=== PATIENT | male | born 2005 | race Caucasian/White ===

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

== ENCOUNTER 2023-04-07 19:35 | Emergency (ER) | payer MEDICAID, SELFPAY ==
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
[2023-04-07 19:34] VITALS: BP 120/82; PULSE 72; O2SAT 100
[2023-04-07 19:45] VITALS: BP 120/80; PULSE 84; RESP 16; TEMP 36.8; O2SAT 98; BMI 18.6
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
== END 2023-04-07 21:53 | disposition left against medical advice (07) ==
PROVIDERS: Emergency Provider Emergency Medicine
DX: Z04.1 Encounter for examination and observation following transport accident (principal); M54.9 Dorsalgia, unspecified
CPT/HCPCS: 70450; 72125; 99281; 99284

== ENCOUNTER → 2025-03-06 08:03 | Outpatient (BNV) | payer OTHER, SELFPAY | PROVIDERS: Emergency Provider Emergency Medicine; Visit Provider Radiology Body Imaging | DX: R06.02 Shortness of breath (principal) | CPT/HCPCS: 71046 ==

== ENCOUNTER 2025-03-06 08:23 | Emergency (ER) | payer OTHER, SELFPAY ==
--- NOTE | ~2025-03-06 | XR_ITS ---
EXAMINATION: XR CHEST CLINICAL INFORMATION: sob COMPARISON: None available. TECHNIQUE: 2 views of the chest were obtained. FINDINGS: Lungs: Lungs are clear. No focal lung consolidation or evidence of edema. Pleura: No pleural effusion or pneumothorax. Heart/Mediastinum: Normal heart and mediastinum. Bones/Soft Tissues: Unremarkable. XR/XR chest 2V IMPRESSION: Normal chest. Electronically signed by: Soledad De Paz MD 03/06/2025 09:09 AM EDT
[2025-03-06 08:36] VITALS: BP 164/64; PULSE 55; RESP 18; TEMP 37; O2SAT 98; BMI 20.2
--- NOTE | 2025-03-06 08:59 | ED_ITS ---
HPI - General Adult General Chief complaint: General Medical Stated complaint: SOB, dust inhalation @ work Time Seen by Provider: 03/06/25 08:52 Source: patient and old records reviewed Mode of arrival: ambulatory Limitations: no limitations History of Present Illness ED Provider: Miller Dover PA-C HPI narrative: 19-year-old male with medical history of anxiety, presents to the ED due to 1 week of cough, lung, chest pain, SOB. 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 Patient states he wears a respirator but still has dust exposure, over the last week he has been experiencing deep productive cough with pain in his lungs and chest pain when coughing. Patient reports last night he began experiencing body aches, nausea. Patient states he has been eating and drinking okay, no vomiting. Denies sick contacts, recent travel. Denies abdominal pain, vomiting, diarrhea, black/tarry stool, urinary symptoms, dizziness, lightheadedness, headache, visual changes MD complaint: cough, lung, chest pain Related Data Previous Rx's ?Medication ?Instructions ?Recorded hydroxyzine HCl 25 mg tablet 25 mg PO TID PRN anxiety #14 tabs 12/30/22 albuterol sulfate 90 mcg/actuation 1 inh inhalation QI D PRN shortness 03/06/25 aerosol inhaler (Ventolin HFA) of breath or wheezing # 6.7 grams prednisone 20 mg tablet 20 mg PO BID 5 days #10 tabs 03/06/25 Allergies Allergy/AdvReac Type Severity Reaction Status Date / Time mold Allergy Cough Verified 03/06/25 08:42 pollen extracts Allergy Itchy Eyes Verified 03/06/25 08:42 Review of Systems 2 Review of Systems: CONST: Negative for fever, and chills. POS body aches HENT: Negative for neck pain/stiffness, headache, congestion, sore throat, swelling. EYES: Negative for discharge/pain or vision changes. RESP: Negative for hemoptysis. POS cough, SOB CV: Negative difficulty breathing, palpitations. POS chest pain ABD: Negative pain, vomiting. POS nausea : Negative increase frequency, dysuria, blood in urine or stool. MUSC: Negative for muscle aches, edema. SKIN: Negative rash, lesions/sores. NEURO: Negative headache, dizziness, weakness. Yes all other systems are reviewed and are negative PMFSH Past Medical History Attestation statement: The following information was validated with the patient. Source: old records reviewed and nursing notes reviewed Medical History Anxiety Social History Social History Alcohol intake: never Smoked in Last 30 Days: Yes Use of substances other than those prescribed or required for medical reasons: No Advance Directives: No Advance Directives Information Provided: Yes Do you have a plan to hurt others: No Plan Physical Exam ED Vital Signs: Vital Signs - 24 hr 03/06/25 08:36 03/06/25 10:55 Temperature 98.6 F 98.6 F Pulse Rate 55 55 Respiratory Rate 18 18 Blood Pressure 164/64 H 164/64 H Pulse Oximetry 98 98 Oxygen Delivery Method Room Air Room Air BMI result Body Mass Index 20.2 GENERAL APPEARANCE: ?AxOx4, generally well-appearing, no acute distress. HEENT: ?NC, AT. MMM. EOMI, clear conjunctiva, oropharynx clear. NECK: ?Supple without lymphadenopathy.? No stiffness or restricted ROM. HEART:? Normal rate and regular rhythm, normal S1/S2, no m/r/g LUNGS:? CTAB, moving air well. No crackles or wheezes are heard. ABDOMEN: ?Soft, nontender, nondistended with good bowel sounds heard. BACK: No CVAT, no obvious deformity. EXTREMITIES: ?Without cyanosis, clubbing or edema. NEUROLOGICAL: ?Grossly nonfocal. Alert and oriented, moving all 4 extremities. Observed to ambulate with normal gait. Skin: ?Warm and dry without any rash. Medications Administered Discontinued Medications Generic Name Dose Route Start Last Admin Trade Name Freq PRN Reason Stop Dose Admin Lactated Ringer's 1,000 mls @ 999 mls/hr 03/06/25 09:33 03/06/25 10:54 Lr IV 03/06/25 10:33 Infused .Q1H1M ONE Infusion Acetaminophen 1,000 mg in 100 mls @ 400 mls/hr 03/06/25 09:33 03/06/25 10:05 Ofirmev IV 03/06/25 09:47 Infused ONCE ONE Infusion Ketorolac Tromethamine 15 mg 03/06/25 09:33 03/06/25 09:49 Ketorolac Tromethamine 15 Mg/Ml Vial IVPUSH 03/06/25 09:34 15 mg ONCE ONE Administration Medical Decision Making Medical Decision Making MDM Narrative: 1-year-old male with medical history of anxiety, presents to the ED due to 1 week of cough, lung, chest pain, SOB. 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 Patient states he wears a respirator but still has dust exposure, over the last week he has been experiencing deep productive cough with pain in his lungs and chest pain when coughing. Patient reports last night he began experiencing body aches, nausea. Patient states he has been eating and drinking okay, no vomiting. Denies sick contacts, recent travel. VSS, BP of 164/64, pulse rate 55, respiratory rate 18, afebrile with oral temperature of 98.6?, O2 saturation 98% on room air. Plan: Labs, EKG, viral serology, CXR Patient medicated with IV fluids, 15 mg IV Toradol, 1 g IV Tylenol Course 10:18- CXR negative for any acute cardiopulmonary process.- less likely pneumonitis/pneumonia EKG shows normal sinus rhythm without ST elevation/depression, T-wave abnormality indicative of ischemia, initial troponin undetectable at <2.7. Lab work reveals leukocytosis of 11.9, H&H stable, no electrolyte abnormalities. Viral serology negative for flu/RSV/COVID. VSS, no tachypnea, no tachycardia, O2 saturation 98% on room air, PERC score of 0, well's score 0-less likely PE At this time I believe patient has some type of viral illness causing his symptoms, along with exposure of dust further irritating the lungs and making his cough worse. Patient's chest pain is reproducible with palpation over the left chest wall, is worse when coughing, and deep inspiration, with negative troponin, EKG without ST elevation/depression-this is less likely cardiac chest pain and more likely muscle strain due to increased coughing over the past week. Will discharge patient with 5 day course of 40 mg prednisone, albuterol inhaler. I counseled patient that this is most likely a viral illness, needs supportive care for improvement, encouraged patient plenty of fluids, rest. Patient is in agreement with the plan. Differential Diagnosis Differential Diagnoses: The differential diagnosis associated with the presentation includes Pneumonitis Pneumonia Occupational asthma Viral illness Admission/Observation Consideration of admission/observation: Escalation of care including admission/observation considered Lab Data MDM Lab Attestation statement: I reviewed the patient's lab results. 03/06/25 09:19 03/06/25 09:19 Labs: Lab Results 03/06/25 03/06/25 Range/Units 09:19 09:20 WBC 11.9 H (4.8-10.8) X10*3/uL RBC 4.65 (4.60-5.80) X10*6/uL Hgb 14.7 (14.0-18.0) g/dl Hct 40.5 L (42.0-52.0) % MCV 87.1 (80.0-98.0) fL MCH 31.6 (27.0-33.0) pg MCHC 36.3 H (31.0-36.0) g/dl RDW 12.2 (11.0-16.0) % Plt Count 306 (160-400) X10*3/uL MPV 8.8 L (9.4-12.4) fL Immature Gran % (Auto) 0.3 (0.0-0.4) % Neut % (Auto) 75.5 H (45-73) % Lymph % (Auto) 7.9 L (20-40) % Garrard % (Auto) 10.9 (2-11) % Eos % (Auto) 5.0 H (0-4) % Baso % (Auto) 0.4 (0-2) % Lymph # (Auto) 0.9 L (1.2-4.9) X10*3/uL Garrard # (Auto) 1.3 H (0.1-1.2) X10*3/uL Eos # (Auto) 0.6 H (0.0-0.4) X10*3/uL Baso # (Auto) 0.1 (0.0-0.2) X10*3/uL Abs Immat Gran (auto) 0.03 (0.00-0.03) X10*3/uL Absolute Neuts (auto) 9.0 H (2.0-8.3) x10*3/uL Absolute Nucleated RBC 0.000 (0.0-0.012) X10*3/uL Nucleated RBC % (auto) 0.0 (0.0-0.2) /100WBC Sodium 142 (135-145) mmol/L Potassium 3.6 (3.3-5.1) mmol/L Chloride 108 (96-108) mmol/L Carbon Dioxide 25 (22-29) mmol/L Anion Gap 13 (12-20) BUN 12 (9-16) mg/dL Creatinine 1.04 (0.5-1.4) mg/dL Estim Creat Clear Calc 87.4 Estimated GFR > 60 Random Glucose 96 (60-115) mg/dL Calcium 9.0 (8.4-10.2) mg/dL Total Bilirubin 0.5 (0.0-1.0) mg/dL Direct Bilirubin 0.2 (0.0-0.5) mg/dL AST 29 (5-37) U/L ALT 17 (0-40) U/L Alkaline Phosphatase 68 (39-117) U/L Troponin I High Sens < 2.7 (<3.5-35.0) ng/L Total Protein 7.0 (6.5-8.0) g/dL Albumin 4.2 (3.5-5.0) g/dL Influenza Type A (PCR) NEGATIVE (Negative) Influenza Type B (PCR) NEGATIVE (Negative) RSV RNA Qual (PCR) NEGATIVE (Negative) SARS-CoV-2 RNA (RT-PCR) NEGATIVE (Negative) Independent Interpretation I performed an independent interpretation of an: EKG Interpretation: I personally interpreted the EKG which revealed normal sinus rhythm without ST elevation/depression, T-wave abnormality Vent. Rate : 86 BPM Atrial Rate : 86 BPM P-R Int : 128 ms QRS Dur : 84 ms QT Int : 354 ms P-R-T Axes : 21 58 41 degrees QTcB Int : 423 ms Normal sinus rhythm with sinus arrhythmia Normal ECG No previous ECGs available I personally interpreted the CXR which does not reveal cardiomegaly, pulmonary effusion, pulmonary edema, infiltrates, consolidations, I agree with the radiologist's interpretation Radiology Impression Discussion of test interpretation with radiology: I have reviewed the radiologist's reading. Radiologist Impression: CXR Lungs: Lungs are clear. No focal lung consolidation or evidence of edema. Pleura: No pleural effusion or pneumothorax. Heart/Mediastinum: Normal heart and mediastinum. Bones/Soft Tissues: Unremarkable. XR/XR chest 2V IMPRESSION: Normal chest. Electronically signed by: Soledad De Paz MD 03/06/2025 09:09 AM EDT RP Dictated By: Soledad De Paz MD Signed By: <Electronically signed by Soledad De Paz MD in OV> 03/06/25 0909 External Record Review External record reviewed: Inpatient record, Office record and Outpatient record Chronic Conditions Patient?s care impacted by: Other (Anxiety) Discharge Plan Discharge Clinical Impression: Viral illness Patient Disposition: Home, Self-Care Instructions: Viral Syndrome (ED) Additional Instructions: You were evaluated in the ED today due to cough, lung pain, body aches. Your labs revealed a mild elevated white blood cell count of 11.9, your EKG did not reveal any emergent cardiac process, your troponin which is an enzyme your heart gives off during stress or damage was undetectable, your viral serology including flu/COVID/RSV was negative, your chest x-ray was normal without evidence of consolidations or infiltrates consistent with lung disease or pneumonia. Although your flu/COVID/RSV was negative, there are many viruses that we do not test for. At this time I believe you have some type of viral illness that is causing your symptoms, along with dust exposure making your symptoms worse. Viral illnesses are self-limiting, meaning that they will improve on their own with plenty of fluids, rest and good nutrition. You will be prescribed a 5 day course of 40 mg prednisone, albuterol inhaler. For pain and fever you should alternate 500 mg of Tylenol and 400 mg of ibuprofen until symptoms improve. I included referrals for you to call to get established with a primary care provider. Please return to the emergency department if you experience fevers over 100.4?, worsening chest pain, worsening cough, or any other new/worsening/concerning symptoms. Prescriptions: New prednisone 20 mg tablet 20 mg PO BID 5 Days Qty: 10 0RF albuterol sulfate [Ventolin HFA] 90 mcg/actuation HFA aerosol inhaler 1 inh inhalation QID PRN (Reason: shortness of breath or wheezing) Qty: 6.7 0RF No Action hydroxyzine HCl 25 mg tablet 25 mg PO TID PRN (Reason: anxiety) Qty: 14 0RF Referrals: [facility] [Provider Group, Family Practice] [facility] [place]Provider Group, [facility] Practice] Stand Alone Forms: Work/School Release Interventions: ED Discharge Assessment Last Done: 03/06/25 10:55 Discharge Date/Time: 03/06/25 10:58 Print Language: Slovak
--- NOTE | 2025-03-06 09:15 | ECG_ITS ---
Test Reason : chest pain Blood Pressure : */* mmHG Vent. Rate : 86 BPM Atrial Rate : 86 BPM P-R Int : 128 ms QRS Dur : 84 ms QT Int : 354 ms P-R-T Axes : 21 58 41 degrees QTcB Int : 423 ms Normal sinus rhythm with sinus arrhythmia Normal ECG No previous ECGs available Referred By: Jazzmine Bhatt Electronically Signed By: Joseph Garcia
[2025-03-06 09:33] LABS: MANUAL DIFF FLAG NO
[2025-03-06 09:35] LABS: Hematocrit 40.5 % (42.0-52.0); Hemoglobin 14.7 g/dl (14.0-18.0); Imm Gran Abs Auto 0.03 X10*3/uL (0.00-0.03); Imm Gran Pct Auto 0.3 % (0.0-0.4); Lymphocytes Absolute Auto 0.9 X10*3/uL (1.2-4.9); Mean Corpuscular HGB Conc 36.3 g/dl (31.0-36.0); Mean Corpuscular Hemoglobin 31.6 pg (27.0-33.0); Mean Corpuscular Volume 87.1 fL (80.0-98.0); NRBC Abs Auto 0.000 X10*3/uL (0.0-0.012); NRBC Pct Auto 0.0 /100WBC (0.0-0.2); Platelet Count 306 X10*3/uL (160-400); Red Blood Count 4.65 X10*6/uL (4.60-5.80); White Blood Count 11.9 X10*3/uL (4.8-10.8)
[2025-03-06] MEDS: Lactated Ringers 1,000 ML 999 ML IV (09:53)
[2025-03-06 10:07] LABS: Alanine Aminotransferase 17 U/L (0-40); Albumin Level 4.2 g/dL (3.5-5.0); Alkaline Phosphatase 68 U/L (39-117); Anion Gap 13 (12-20); Aspartate Amino Transferase 29 U/L (5-37); Blood Urea Nitrogen 12 mg/dL (9-16); Calcium 9.0 mg/dL (8.4-10.2); Carbon Dioxide 25 mmol/L (22-29); Chloride 108 mmol/L (96-108); Creatinine Clr Calc Pharmacy 87.4; Estimated Glomerular Filt Rate > 60; Potassium 3.6 mmol/L (3.3-5.1); Sodium 142 mmol/L (135-145); Total Protein 7.0 g/dL (6.5-8.0)
[2025-03-06 10:17] LABS: Troponin-I High Sensitivity < 2.7 ng/L (<3.5-35.0)
[2025-03-06 10:18] LABS: Resp Syncy Virus RNA Qual PCR NEGATIVE (Negative); SARS COV2 PCR INHOUSE NEGATIVE (Negative)
[2025-03-06 10:55] VITALS: BP 164/64; PULSE 55; RESP 18; TEMP 37; O2SAT 98
== END 2025-03-06 10:58 | disposition home or self-care (01) ==
PROVIDERS: Emergency Provider Emergency Medicine
DX: B34.9 Viral infection, unspecified (principal); R06.02 Shortness of breath; R07.9 Chest pain, unspecified; R05.9 Cough, unspecified
CPT/HCPCS: 36415; 71046; 80048; 80076; 84484; 85025; 87637; 93005; 96361; 96374; 96375; 99284; J0131; J1885; J7120

== ENCOUNTER → 2025-03-06 09:15 | Outpatient (BNV) | payer OTHER, SELFPAY | PROVIDERS: Emergency Provider Emergency Medicine; Visit Provider Internal Medicine Cardiovascular Disease | DX: R07.9 Chest pain, unspecified (principal) | CPT/HCPCS: 93010 ==